=== PATIENT | female | born 1995 | race Caucasian/White ===

== ENCOUNTER 2021-02-28 07:41 | Outpatient (REF) | payer OTHER, SELFPAY ==
[2021-02-28 08:26] LABS: COVID-19 Test Negative (Negative)
== END 2021-02-28 07:42 | disposition home or self-care (01) ==
LOC: HO.LAB 07:41
PROVIDERS: Visit Provider Internal Medicine
DX: Z20.822 Contact with and (suspected) exposure to COVID-19 (principal)
CPT/HCPCS: 87635; C9803

== ENCOUNTER 2021-05-28 12:44 | Outpatient (REF) | payer OTHER, SELFPAY ==
--- NOTE | ~2021-05-28 | MR_ITS ---
MR BRAIN WITHOUT AND WITH IV CONTRAST CLINICAL INFORMATION: Status post epidermal cyst surgery with continuing migraines. COMPARISON: None available. TECHNIQUE: Multiplanar, multisequence MRI of the brain was obtained before and after the intravenous administration of 8.5 mL Gadavist. FINDINGS: Postoperative changes following right temporal craniotomy with a subjacent fluid signal intensity resection cavity likely contiguous with the right temporal horn. Mild probable gliosis along the margin of the resection cavity. There is no pathologic enhancement in this location nor elsewhere intracranially. There is no hydrocephalus, extra-axial surface collection, or herniation. The major flow voids at the skull base are preserved. There is no acute infarct on diffusion-weighted imaging. There is no intracranial hemorrhage on the gradient recalled echo acquisition. The midline structures are normal. The cerebellar tonsils are normally positioned. The cerebellum and brainstem are normal. The craniocervical junction is normal. Osseous marrow signal intensity is homogenous. The visualized soft tissues are unremarkable. Small retention cyst within the right maxillary sinus. MR/MR head/brain wo/w con IMPRESSION: Postoperative changes following right temporal craniotomy with a subjacent fluid signal intensity resection cavity likely contiguous with the right temporal horn. Mild probable gliosis along the margin of the resection cavity. There is no pathologic enhancement in this location nor elsewhere intracranially. No acute intracranial findings.
== END 2021-05-28 12:45 | disposition home or self-care (01) ==
LOC: HO.MRI 12:44
PROVIDERS: Visit Provider Neurological Surgery
DX: L72.0 Epidermal cyst (principal); Z98.890 Other specified postprocedural states
CPT/HCPCS: 70553; A9585